=== PATIENT | female | born 1935 | race Hispanic/Latino ===

== ENCOUNTER 2018-02-23 16:49 | Emergency (ER) | payer MEDICARE, BC ==
[2018-02-23 16:49] VITALS: BMI 42.2
[2018-02-23 17:41] VITALS: RESP 19; O2SAT 99
[2018-02-23] MEDS ORDERED: Clotrimazole 1% Cream(30 gm) TOP STA (17:44)
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
[2018-02-23] MEDS ORDERED: Bacitracin 500 Units/gm Oint Foilpak UD ONE (19:02)
[2018-02-23 19:17] VITALS: BP 126/53; PULSE 72; TEMP 97.6
== END 2018-02-23 19:16 | disposition home or self-care (01) ==
LOC: ED 16:49
DX: B35.4 Tinea corporis (principal); B35.6 Tinea cruris; S30.814A Abrasion of vagina and vulva, initial encounter; X58.XXXA Exposure to other specified factors, initial encounter

== ENCOUNTER 2018-03-23 12:33 | Inpatient (IN) | payer MEDICARE, BC ==
[2018-03-23 12:37] VITALS: BMI 46.0
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
[2018-03-23 13:05] LABS: PH,URINE 6.5 (4.7-8.0); URINE BILIRUBIN NEGATIVE (NEGATIVE); URINE BLOOD NEGATIVE (NEGATIVE); URINE GLUCOSE (UA) NEGATIVE (NEGATIVE); URINE LEUKOCYTE ESTERASE NEGATIVE Leu/uL (NEGATIVE); URINE PROTEIN 100 mg/dL (<30 mg/dL); URINE UROBILINOGEN 0.2 E.U./dL (<1 E.U./dL)
[2018-03-23 13:06] LABS: BASO # 0.02 K/mm3 (0.0-2.0); BASO % 0.2 % (0.0-3.0); EOS # 0.3 (0.0-0.7); EOS % 2.6 % (1.5-5.0); HEMOGLOBIN 14.7 g/dL (12.0-16.0); LYMPH # 3.7 (1.2-3.4); LYMPH % 38.6 % (22.0-35.0); MEAN CELL VOLUME 97.8 fl (80.0-105.0); MEAN CORPUSCULAR HEMOGLOBIN 32.1 pg (25.0-35.0); MEAN CORPUSCULAR HGB CONC 32.8 g/dl (31.0-37.0); MEAN PLATELET VOLUME 8.8 fl (7.0-11.0); MONO # 0.6 (0.1-0.6); MONO % 6.1 % (1.0-6.0); RBC 4.58 10^6/uL (3.5-6.1); RED CELL DISTRIBUTION WIDTH 13.2 % (11.5-14.5); URINE APPEARANCE CLEAR (CLEAR); URINE COLOR YELLOW (YELLOW); WHITE BLOOD COUNT 9.5 10^3/uL (4.5-11.0)
[2018-03-23 13:07] LABS: VENOUS BLOOD GAS BASE EXCESS -2.1 mmol/L (0.0-2.0); VENOUS BLOOD GAS PO2 43 mm/Hg (30-55); VENOUS BLOOD PH 7.31 (7.32-7.43)
[2018-03-23 13:11] LABS: URINE BACTERIA MANY /hpf; URINE RBC 0 - 2 /hpf (0-2)
[2018-03-23 13:13] LABS: URINE AMORPHOUS SEDIMENT FEW /hpf
[2018-03-23 13:15] LABS: INR 0.99; PARTIAL THROMBOPLASTIN TIME 30.8 Seconds (26.9-38.3); PROTHROMBIN TIME 11.2 SECONDS (9.4-12.5)
[2018-03-23 13:20] LABS: ALB/GLOB RATIO 1.1 (1.1-1.8); ALBUMIN 4.3 g/dL (3.0-4.8); ALT/SGPT 40 U/L (7-56); AST/SGOT 37 U/L (14-36); BLOOD UREA NITROGEN 19 mg/dL (7-21); CALCIUM 9.4 mg/dL (8.4-10.5); GFR NON-AFRICAN AMERICAN > 60
[2018-03-23] MEDS ORDERED: Sodium Chloride 0.9% 1,000 ML IV STA (13:23)
[2018-03-23 13:29] LABS: B-TYPE NATRIURETIC PEPTIDE 145 pg/mL (0-450)
[2018-03-23 13:37] LABS: FREE T4 1.08 ng/dL (0.78-2.19)
--- NOTE | 2018-03-23 13:42 | RAD ---
Date of service: 03/23/2018 HISTORY: sob COMPARISON: Comparison chest dated 06/21/2013. FINDINGS: LUNGS: Poor inspiration with low lung volumes, crowded bronchovascular markings and bibasilar atelectasis. Central pulmonary vascular slightly increased which may be secondary to low lung volumes. PLEURA: No significant pleural effusion identified, no pneumothorax apparent. CARDIOVASCULAR: Cardiomegaly. There appears to be mild atherosclerotic calcification present. OSSEOUS STRUCTURES: No significant abnormalities. VISUALIZED UPPER ABDOMEN: Normal. OTHER FINDINGS: None. IMPRESSION: Poor inspiration with low lung volumes, crowded bronchovascular markings and bibasilar atelectasis. Central pulmonary vasculature is also slightly increased which may be secondary to low lung volume.
[2018-03-23] MEDS ORDERED: cycloSPORINE 0.05 % Opth Emulsion UD OD ONE (15:24)
[2018-03-23] MEDS ORDERED: Sodium Chloride 0.45% 1,000 ML IV SCH (20:30)
--- NOTE | 2018-03-23 21:24 | CARD ---
APPROVED REPORT Date of service: 03/23/2018 EKG Measurement Heart [id number] <Conclusion> Normal sinus rhythm Left axis deviation Minimal voltage criteria for LVH, may be normal variant Anterolateral infarct, age undetermined Abnormal ECG
[2018-03-23] MEDS: Albuterol-Ipratrop 3 mg / 0.5 (3 ml) UD IH SCH (22:09)
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
[2018-03-24 00:57] LABS: URINE BILIRUBIN NEGATIVE (NEGATIVE); URINE BLOOD NEGATIVE (NEGATIVE); URINE GLUCOSE (UA) NEGATIVE (NEGATIVE); URINE LEUKOCYTE ESTERASE MODERATE Leu/uL (NEGATIVE); URINE PROTEIN NEGATIVE mg/dL (<30 mg/dL); URINE UROBILINOGEN 0.2 E.U./dL (<1 E.U./dL)
[2018-03-24 00:59] LABS: URINE APPEARANCE SL CLOUDY (CLEAR); URINE COLOR YELLOW (YELLOW)
[2018-03-24 01:21] LABS: URINE BACTERIA MOD /hpf; URINE RBC 0 - 2 /hpf (0-2)
[2018-03-24] MEDS: Albuterol-Ipratrop 3 mg / 0.5 (3 ml) UD IH SCH ×2 (03:30→08:05)
[2018-03-24] MEDS: Tetrahydrozoline Opht 0.05% Sol (15 ml) OU SCH ×5 (05:28→23:40)
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
[2018-03-24 08:49] LABS: HEMOGLOBIN 14.6 g/dL (12.0-16.0); MEAN CELL VOLUME 97.6 fl (80.0-105.0); MEAN CORPUSCULAR HEMOGLOBIN 31.8 pg (25.0-35.0); MEAN CORPUSCULAR HGB CONC 32.6 g/dl (31.0-37.0); MEAN PLATELET VOLUME 9.1 fl (7.0-11.0); RBC 4.59 10^6/uL (3.5-6.1); RED CELL DISTRIBUTION WIDTH 13.2 % (11.5-14.5); WHITE BLOOD COUNT 11.2 10^3/uL (4.5-11.0)
[2018-03-24 09:06] LABS: B-TYPE NATRIURETIC PEPTIDE 201 pg/mL (0-450)
[2018-03-24 09:12] LABS: ALB/GLOB RATIO 1.1 (1.1-1.8); ALBUMIN 4.2 g/dL (3.0-4.8); ALT/SGPT 26 U/L (7-56); AST/SGOT 38 U/L (14-36); BLOOD UREA NITROGEN 16 mg/dL (7-21); CALCIUM 9.5 mg/dL (8.4-10.5); GFR NON-AFRICAN AMERICAN > 60
[2018-03-24] MEDS ORDERED: Levothyroxine 50 MCG TAB PO SCH (10:00)
[2018-03-24] MEDS: Clotrimazole/Betamethasone Cream(15 gm) TOP SCH ×2 (11:12→18:04)
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
[2018-03-24] MEDS: Vancomycin 1gm in NS 250ml 1 GM/250 ML BAG IVPB SCH (14:31)
--- NOTE | 2018-03-24 15:16 | CON ---
DATE: 03/24/2018 The patient is seen earlier in 572, bed 2. CHIEF COMPLAINT: Weakness times several days. 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 There had been no fevers and no chills. No nausea or vomiting. No abdominal pain. No dysuria or frequency. No lower back pain. REVIEW OF SYSTEMS: Reveals a 12-point review of systems is performed. PAST MEDICAL HISTORY: Significant for gallstones, high cholesterol, hypertension, depression, bipolar, hypothyroidism, paranoia, arthritis. PAST SURGICAL HISTORY: Significant for cataract surgery, x3. ALLERGIES: THE PATIENT HAS NO KNOWN ALLERGIES. MEDICATIONS: Medications at home include the patient to be on a statin, Synthroid, amlodipine. PHYSICAL EXAMINATION: GENERAL: The patient is in bed. VITAL SIGNS: Temperature of 97, blood pressure is 150/74, respiratory rate of 26-28, heart rate of 90, was up to 95. HEENT: Examination of HEENT is unremarkable. NECK: Supple. LUNGS: Have decreased breath sounds. HEART: Normal S1, S2. ABDOMEN: Soft, nontender. No rebound or guarding. No masses. LABORATORY DATA: Laboratory examination reveals a white count 11,200, hemoglobin of 14. Chemistries revealed a BUN of 16, creatinine of 0.6. Urinalysis reveals 1 to 3 wbc's, many bacteria, negative leukocyte esterase. There is proteinuria. Microbiology is pending and Dr. Rock's consultation is reviewed. There is chronic buttock ulcer, no discoloration, no evidence of infection, Bactroban topical ointment. Dr. Guan's history and physical examination is reviewed. Chest x-ray is reported to be poor inspiration with a crowd of bronchovascular markings as per Dr. Chaim Dillon. EEG shows a QTC of 476. 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 No obvious evidence of infection at this point. At this time, blood cultures will be ordered and urine cultures have been ordered. We will order a nasal methicillin-resistant Staphylococcus aureus screen and sputum cultures and a procalcitonin, and we will start the patient on vancomycin, and adjust the dose for her age once daily and also start Maxipime 1 g every 12 hours, vancomycin 1 g daily. Pending panculture, initial workup results, and we will make further recommendations, initial workup results, and we will follow closely with you. Syed Goodman MD
[2018-03-24] MEDS: Cefepime 1gm in NS 100ml 1 GM/100 ML BAG IVPB SCH (21:37)
[2018-03-25 07:53] LABS: HEMOGLOBIN 13.1 g/dL (12.0-16.0); MEAN CELL VOLUME 97.9 fl (80.0-105.0); MEAN CORPUSCULAR HEMOGLOBIN 31.3 pg (25.0-35.0); MEAN PLATELET VOLUME 8.9 fl (7.0-11.0); RBC 4.19 10^6/uL (3.5-6.1); RED CELL DISTRIBUTION WIDTH 13.3 % (11.5-14.5); WHITE BLOOD COUNT 10.2 10^3/uL (4.5-11.0)
[2018-03-25 08:04] LABS: ALB/GLOB RATIO 1.2 (1.1-1.8); ALBUMIN 3.8 g/dL (3.0-4.8); ALT/SGPT 28 U/L (7-56); AST/SGOT 33 U/L (14-36); BLOOD UREA NITROGEN 18 mg/dL (7-21); GFR NON-AFRICAN AMERICAN > 60
[2018-03-25] MEDS: Cefepime 1gm in NS 100ml 1 GM/100 ML BAG IVPB SCH ×2 (09:13→22:51)
[2018-03-25] MEDS: Levothyroxine 50 MCG TAB PO SCH (09:16)
[2018-03-25] MEDS: Vancomycin 1gm in NS 250ml 1 GM/250 ML BAG IVPB SCH (09:17)
[2018-03-25] MEDS: Tetrahydrozoline Opht 0.05% Sol (15 ml) OU SCH ×3 (10:00→18:40)
[2018-03-25] MEDS: Clotrimazole/Betamethasone Cream(15 gm) TOP SCH ×2 (10:01→18:40)
--- NOTE | 2018-03-25 14:21 | CP.PCM.PN ---
Subjective - Date & Time of Evaluation Date of Evaluation: 03/25/18 Time of Evaluation: 09:35 - Subjective Subjective: No fevers, not in distress, no dysuria currently. Objective - Vital Signs/Intake and Output Vital Signs (last 24 hours): Temp Pulse Resp BP Pulse Ox 98.2 F 92 H 20 114/56 L 92 L 03/24/18 22:00 03/24/18 22:00 03/24/18 22:00 03/24/18 22:00 03/24/18 22:00 Intake and Output: 03/25/18 03/25/18 06:59 18:59 Intake Total 240 Balance 240 - Medications Medications: Current Medications Amlodipine Besylate (Norvasc) 10 mg PO DAILY [facility] Last Admin: 03/24/18 09:36 Dose: 10 mg Atorvastatin Calcium (Lipitor) 20 mg PO HS [facility] Last Admin: 03/24/18 21:37 Dose: 20 mg Betamethasone/Clotrimazole (Lotrisone) 0 gm TOP BID [facility] Last Admin: 03/24/18 18:04 Dose: 1 dose Furosemide (Lasix) 40 mg IVP DAILY [facility] Last Admin: 03/24/18 09:36 Dose: 40 mg Cefepime HCl (Maxipime 1gm) 1 gm in 100 mls @ 100 mls/hr IVPB Q12 [facility]; Protocol Stop: 04/02/18 22:01 Last Admin: 03/24/18 21:37 Dose: 100 mls/hr Vancomycin HCl (Vancomycin 1gm) 1 gm in 250 mls @ 167 mls/hr IVPB DAILY [facility]; Protocol Stop: 04/02/18 13:40 Last Admin: 03/24/18 14:31 Dose: 167 mls/hr Ibuprofen (Motrin Tab) 400 mg PO Q6H PRN PRN Reason: Pain, moderate (4-7) Last Admin: 03/25/18 04:37 Dose: 400 mg Levothyroxine Sodium (Synthroid) 75 mcg PO DAILY [facility] Tetrahydrozoline HCl/Zinc Sulfate (Visine 0.05% Opht Soln) 0 ml OU QID [facility] Last Admin: 03/24/18 23:40 Dose: Not Given Topiramate (Topamax) 50 mg PO HS [facility]; Protocol Last Admin: 03/24/18 21:37 Dose: 50 mg - Labs Labs: 03/24/18 08:30 03/24/18 08:30 PT 11.2 SECONDS (9.4-12.5) 03/23/18 11:50 INR 0.99 03/23/18 11:50 APTT 30.8 Seconds (26.9-38.3) 03/23/18 11:50 - Constitutional Appears: Chronically Ill - Head Exam Head Exam: NORMAL INSPECTION - Respiratory Exam Respiratory Exam: Decreased Breath Sounds - Cardiovascular Exam Cardiovascular Exam: +S1, +S2 - GI/Abdominal Exam GI & Abdominal Exam: Soft. 

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
[2018-03-26] MEDS: Tetrahydrozoline Opht 0.05% Sol (15 ml) OU SCH ×5 (00:08→23:23)
[2018-03-26 07:28] LABS: HEMOGLOBIN 13.6 g/dL (12.0-16.0); MEAN CELL VOLUME 97.7 fl (80.0-105.0); MEAN CORPUSCULAR HEMOGLOBIN 31.7 pg (25.0-35.0); MEAN CORPUSCULAR HGB CONC 32.5 g/dl (31.0-37.0); MEAN PLATELET VOLUME 8.8 fl (7.0-11.0); RBC 4.29 10^6/uL (3.5-6.1); RED CELL DISTRIBUTION WIDTH 13.3 % (11.5-14.5); WHITE BLOOD COUNT 9.9 10^3/uL (4.5-11.0)
[2018-03-26 07:42] LABS: ALB/GLOB RATIO 1.2 (1.1-1.8); ALBUMIN 4.1 g/dL (3.0-4.8); ALT/SGPT 26 U/L (7-56); AST/SGOT 39 U/L (14-36); BLOOD UREA NITROGEN 21 mg/dL (7-21); CALCIUM 9.4 mg/dL (8.4-10.5); GFR NON-AFRICAN AMERICAN > 60
[2018-03-26] MEDS: Amoxicillin-Clav 875-125 mg Tab PO SCH ×2 (10:46→22:00)
[2018-03-26] MEDS: Clotrimazole/Betamethasone Cream(15 gm) TOP SCH ×2 (10:47→18:04)
[2018-03-26] MEDS: Levothyroxine 50 MCG TAB PO SCH (10:48)
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
[2018-03-27] MEDS: Levothyroxine 50 MCG TAB PO SCH (11:04)
[2018-03-27] MEDS: Amoxicillin-Clav 875-125 mg Tab PO SCH ×2 (11:05→22:22)
[2018-03-27] MEDS: Tetrahydrozoline Opht 0.05% Sol (15 ml) OU SCH ×4 (11:06→22:21)
[2018-03-27] MEDS: Clotrimazole/Betamethasone Cream(15 gm) TOP SCH ×2 (11:06→17:13)
--- NOTE | 2018-03-27 12:47 | PN ---
DATE: 03/27/2018 SUBJECTIVE: She is resting comfortably in bed. She is complaining that is her baseline. I am hoping to get her to the TCU today to finish out the IV antibiotics, do wound care and then she will need to go home to her son's house. Her baseline is constantly complaining. PHYSICAL EXAMINATION: VITAL SIGNS: Temperature 97.8, pulse 73, blood pressure 118/50, respiratory rate 18, 97% O2 sat. HEAD: Atraumatic, normocephalic. HEART: Regular rate. LUNGS: Decreased breath sounds. EXTREMITIES: Both her shoulders hurt her. It is difficult for her to walk, but she can stand and move with a walker, morbidly, morbidly obese. She is having a groin rash. She is having a sacral wound. MEDICATIONS: She is currently on Augmentin, Lasix, Lipitor, Lotrisone, Motrin, Norvasc, Synthroid, Topamax, Toradol and Visine. She is now off IV antibiotics. LABORATORY DATA: She has 9.9 white count, 13.6 hemoglobin, 41.9 hematocrit with 219 platelets. She has 142 sodium, potassium 4.1, BUN 21, creatinine 0.8. GFR is greater than 60, sugar is 138, calcium 9.4, total bili is 0.4, AST is 39, ALT is 26, alk phos 71, total protein 7.6. RECOMMENDATION: From physical therapy is, the patient refusing with TCU. I am hoping to get her to TCU today. Adeslo Guan DO
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
[2018-03-28] MEDS: Tetrahydrozoline Opht 0.05% Sol (15 ml) OU SCH ×3 (09:35→20:10)
[2018-03-28] MEDS: Levothyroxine 50 MCG TAB PO SCH (09:38)
[2018-03-28] MEDS: Amoxicillin-Clav 875-125 mg Tab PO SCH ×2 (09:39→21:29)
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
[2018-03-28] MEDS: Clotrimazole/Betamethasone Cream(15 gm) TOP SCH (20:09)
[2018-03-29] MEDS: Tetrahydrozoline Opht 0.05% Sol (15 ml) OU SCH ×3 (00:09→19:28)
[2018-03-29 08:27] VITALS: BP 122/66; PULSE 84; RESP 18; TEMP 98.3; O2SAT 96
[2018-03-29] MEDS: Levothyroxine 50 MCG TAB PO SCH (09:34)
[2018-03-29] MEDS: Amoxicillin-Clav 875-125 mg Tab PO SCH (09:34)
[2018-03-29] MEDS: Clotrimazole/Betamethasone Cream(15 gm) TOP SCH ×2 (09:36→19:00)
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
== END 2018-03-29 22:26 | disposition home or self-care (01) | DRG 690 ==
LOC: ED 12:33 → ERH 18:24 → INTOOBSV 18:24 → ERH 21:51 → 5RSO 23:01 → OBSVTOIN 03-26 08:35
PROVIDERS: ADMIT Family Medicine; ATTEND Family Medicine
DX: N39.0 Urinary tract infection, site not specified (principal); G91.2 (Idiopathic) normal pressure hydrocephalus; L03.317 Cellulitis of buttock; J98.11 Atelectasis; Z68.42 Body mass index [BMI] 45.0-49.9, adult; B95.2 Enterococcus as the cause of diseases classified elsewhere; I10 Essential (primary) hypertension; E03.9 Hypothyroidism, unspecified; B36.9 Superficial mycosis, unspecified; R56.9 Unspecified convulsions; F31.9 Bipolar disorder, unspecified; R26.2 Difficulty in walking, not elsewhere classified; F41.9 Anxiety disorder, unspecified; E66.01 Morbid (severe) obesity due to excess calories; R53.1 Weakness; E78.5 Hyperlipidemia, unspecified; M19.90 Unspecified osteoarthritis, unspecified site; Z98.2 Presence of cerebrospinal fluid drainage device; Z87.891 Personal history of nicotine dependence

== ENCOUNTER 2018-04-13 15:23 | Emergency (ER) | payer MEDICARE, BC ==
[2018-04-13 15:53] VITALS: BMI 45.8
[2018-04-13 16:45] LABS: BASO # 0.02 K/mm3 (0.0-2.0); BASO % 0.2 % (0.0-3.0); EOS # 0.2 (0.0-0.7); EOS % 1.6 % (1.5-5.0); HEMOGLOBIN 14.6 g/dL (12.0-16.0); LYMPH # 2.6 (1.2-3.4); MEAN CELL VOLUME 96.5 fl (80.0-105.0); MEAN CORPUSCULAR HGB CONC 33.2 g/dl (31.0-37.0); MEAN PLATELET VOLUME 8.6 fl (7.0-11.0); MONO # 0.7 (0.1-0.6); MONO % 7.2 % (1.0-6.0); RBC 4.56 10^6/uL (3.5-6.1); URINE APPEARANCE SLIGHT-CLOUDY (CLEAR); URINE BILIRUBIN NEGATIVE (NEGATIVE); URINE BLOOD TRACE-INTACT (NEGATIVE); URINE COLOR YELLOW (YELLOW); URINE GLUCOSE (UA) NEGATIVE (NEGATIVE); URINE LEUKOCYTE ESTERASE SMALL Leu/uL (NEGATIVE); URINE PROTEIN NEGATIVE mg/dL (<30 mg/dL); URINE UROBILINOGEN 0.2 E.U./dL (<1 E.U./dL); WHITE BLOOD COUNT 9.6 10^3/uL (4.5-11.0)
[2018-04-13 16:46] VITALS: TEMP 98.7
[2018-04-13 16:49] LABS: URINE HYALINE CAST 0 - 2 /hpf; URINE RBC 0 - 2 /hpf (0-2)
[2018-04-13 16:53] LABS: INR 1.04; PARTIAL THROMBOPLASTIN TIME 29.5 Seconds (26.9-38.3); PROTHROMBIN TIME 11.5 SECONDS (9.4-12.5)
[2018-04-13 17:02] LABS: ACETAMINOPHEN < 10.0 ug/ml (10.0-20.0); SALICYLATE < 1 mg/dL (2.0-20.0)
[2018-04-13 17:19] LABS: TROPONIN I < 0.01 ng/mL
[2018-04-13 17:33] LABS: ALB/GLOB RATIO 1.2 (1.1-1.8); ALBUMIN 4.3 g/dL (3.0-4.8); ALT/SGPT 20 U/L (7-56); AST/SGOT 37 U/L (14-36); BARBITURATES, UR NEGATIVE (NEGATIVE); BENZODIAZEPINES, UR NEGATIVE (NEGATIVE); BLOOD UREA NITROGEN 33 mg/dL (7-21); GFR NON-AFRICAN AMERICAN > 60; OPIATES, UR NEGATIVE (NEGATIVE); PHENCYCLIDINE, UR NEGATIVE (NEGATIVE)
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
[2018-04-13 19:43] LABS: B-TYPE NATRIURETIC PEPTIDE 109 pg/mL (0-450)
[2018-04-13 20:47] VITALS: BP 139/76; PULSE 84; RESP 18; O2SAT 96
[2018-04-13] MEDS ORDERED: Tetrahydrozoline Opht 0.05% Sol (15 ml) OU SCH (22:00)
--- NOTE | 2018-04-14 02:49 | DS ---
HOSPITAL COURSE: I did spent either 45 minutes with the son and daughter and the parents trying to get this organized. They have finally agreed to take her home. She will be on the same home medication, I am adding Xanax to her list of medications 0.25 three times a day as needed. They are going to follow up with psychiatrhipolito. We will get help at home next week, may be get some physical therapy to come and hospital bed whenever else the family needs and that hopefully they can get this dysfunction under control. Adelso Guan DO [email or web address]
--- NOTE | 2018-04-14 04:21 | HP ---
DATE OF EXAM: 04/13/2018 HISTORY OF PRESENT ILLNESS: I was called to the emergency room to put a nice 83-year-old white female into the hospital. I have known her for a while doing house calls on her. She was apparently brought in by her daughter who wanted put her in the psychiatric floor. There has been a bad dysfunction for agitation, yelling and screaming on both sides, the daughter and the mother. Daughter is having a hard time handling her, I think at home, has a lot of arguing. It is very difficult for the patient to walk. She does use a walker but needs a lot of assistance on lot of other things at home. PAST MEDICAL HISTORY: Hypertension, fungal skin infections, hypothyroidism, arthritis, normal pressure hydrocephalus, I believe there was a shunt in at one time and that was removed. SOCIAL HISTORY: She quit smoking 10 years ago. No alcohol or drugs. ALLERGIES: NO KNOWN DRUG ALLERGIES. MEDICATIONS: She takes Lasix, Lotrisone, Motrin, Norvasc, simvastatin, Synthroid, and tetrahydrozoline eyedrops. REVIEW OF SYSTEMS: No fatigue. No fevers, cannot walk well. She has dry eyes. No sore throat. No neck pain. No shortness of breath or cough. No chest pain or dyspnea on exertion. No palpitations or abdominal pain. No nausea, vomiting, constipation, or diarrhea. No problems urinating. No back pain. She does have a groin infection which is fungal, for which she is on Lotrisone cream for. She has gait problems, gait dysfunction, difficult for her to walk. She needs physical therapy. Not homicidal or aggressive, not suicidal. PHYSICAL EXAMINATION: VITAL SIGNS: Temperature 98.7, pulse 92, respiratory rate 18, blood pressure 111/74, O2 sat 92% on room air. GENERAL: She is alert and talking. HEENT: Head is atraumatic and normocephalic. Extraocular muscles are intact. Pupils equal and reactive to light. Throat is moist. NECK: Supple. No JVD. Thyroid midline. No meningeal signs. HEART: Regular rate. Normal S1 and S2. LUNGS: Decreased breath sounds. No shortness of breath. No wheezes, rhonchi or rales. ABDOMEN: Morbidly obese. Soft and nontender. Positive bowel sounds. No guarding, no rebound or CVA tenderness. EXTREMITIES: No edema. Weak lower extremities. SKIN: Warm and dry. No apparent rashes but she does have a groin fungal skin infection. NEUROLOGIC: She is alert, awake, oriented to person, place and time and situation. She is very upset about her situation at home. She tells me she has weak lower extremities, needs help. PSYCHOLOGICALLY: She is okay, uncomfortable at the situation with her daughter. DIAGNOSTIC DATA: CAT scan of the head, mid brain atrophy and mild ventricular dilatation, small area of encephalomalacia, left cerebral hemisphere, postsurgical changes. She had other tests done. The urine drug screen was negative. Urine was negative. Sodium 141, potassium 4.2, BUN 33, creatinine 0.7 GFR is greater than 60, sugar is 141, calcium 10. Magnesium 2, total bili is 0.3, AST is 37, ALT is 20, alk phos 78, and lactate dehydrogenase is 464. Troponin I is less than 0.01. BNP is 109. Total protein is 8. TSH is 1.92. INR is 1.04. White count 9.6, hemoglobin 14.6, hematocrit 44, and platelets of 239. At this time, after talking with the daughter after talking with the ER doctor and the patient, course of this situation I cannot discharge her home at this time. I will put her on to observation. My gut feeling is she might need EMETERIO, possibly she was walking and she will need 3 overnights for that. Right now, she is on observation. We will see if social worker health services, case management can help us. Called Neurology for her neuro pressure hydrocephalus and physical therapy and case management, social research assistant. Adelso Guan DO [facility]
[2018-04-14] MEDS ORDERED: Levothyroxine 75 MCG TAB PO SCH (07:30)
--- NOTE | 2018-04-14 08:14 | CT ---
Date of service: 04/13/2018 PROCEDURE: CT HEAD WITHOUT CONTRAST. HISTORY: hx of [employer] shunt COMPARISON: None available. TECHNIQUE: Axial computed tomography images were obtained through the head/brain without intravenous contrast. Radiation dose: Total exam DLP = 942.51 mGy-cm. This CT exam was performed using one or more of the following dose reduction techniques: Automated exposure control, adjustment of the mA and/or kV according to patient size, and/or use of iterative reconstruction technique. FINDINGS: HEMORRHAGE: No intracranial hemorrhage. BRAIN: There are mild chronic microangiopathic changes. 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 There is no mass, mass effect or abnormal extra-axial fluid collection. There is no territorial infarction. The midline sagittal structures are normal. VENTRICLES: There is mild age-related global parenchymal volume loss and proportionate enlargement of the cortical sulci. Ventricular dilatation is out of proportion to the sulcal prominence. CALVARIUM: Status post left occipital craniectomy. PARANASAL SINUSES: Predominantly clear. MASTOID AIR CELLS: Under developed. OTHER FINDINGS: None. IMPRESSION: No acute intracranial abnormality. Mild chronic microangiopathic changes and mild age-related global parenchymal volume loss. Encephalomalacia in the left cerebellar hemisphere. With greater dilatation is slightly out of proportion to the sulcal prominence and normal pressure hydrocephalus is a consideration. Clinical follow-up is advised. A preliminary report was provided by [employer].
[2018-04-14] MEDS ORDERED: Clotrimazole/Betamethasone Cream(15 gm) TOP SCH (10:00)
--- NOTE | 2018-04-14 10:00 | RAD ---
Date of service: 04/13/2018 PROCEDURE: CHEST RADIOGRAPH, 1 VIEW HISTORY: medical clearance COMPARISON: 03/23/2018. FINDINGS: LUNGS: The lungs are well inflated and clear. PLEURA: No pneumothorax or pleural effusion. CARDIOVASCULAR: There is mild cardiomegaly. There are aortic atherosclerotic calcifications present. OSSEOUS STRUCTURES: Within normal limits for the patient's age. VISUALIZED UPPER ABDOMEN: Normal. OTHER FINDINGS: None. IMPRESSION: No active pulmonary disease.
--- NOTE | 2018-04-14 10:25 | CARD ---
APPROVED REPORT Date of service: 04/13/2018 EKG Measurement Heart [id number] <Conclusion> Normal sinus rhythm Left anterior fascicular block Poor R wave progression in Precordial leads Abnormal ECG
== END 2018-04-13 20:38 | disposition home or self-care (01) ==
LOC: ED 15:23 → ERH 20:01 → UNDOADMOB 20:01 → ERH 20:32
DX: G91.9 Hydrocephalus, unspecified (principal); E03.9 Hypothyroidism, unspecified; I10 Essential (primary) hypertension
CPT/HCPCS: 70450; 71045; 80053; 81001; 82550; 83615; 83735; 83880; 84436; 84443; 84484; 85025; 85610; 85730; 87086; 90791; 93005; 99284; G0480